=== PATIENT | female | born 1960 | race Caucasian/White ===

== ENCOUNTER → 2021-02-03 | Outpatient (CLI) | payer OTHER ==
--- NOTE | 2021-02-04 10:32 | RAD ---
EXAMINATION: CT LOWER RIGHT EXTREMITY WITHOUT CONTRAST, 02/03/2021 3:59 PM CLINICAL INDICATION: Evaluate tibia and tibial fracture. Posttraumatic arthritis. COMPARISON: Right ankle radiograph 01/29/2021 TECHNIQUE: Helical CT imaging performed of the right ankle without the use of intravenous contrast. S agittal and coronal reformats were obtained. One or more of the following individualized dose reduction techniques were utilized for this examinat ion: 1. Automated exposure control 2. Adjustment of the mA and/or kV according to patient size 3. Use of iterative reconstruction technique. FINDINGS: There is a lateral plate-screw fixation device traversing a likely healed distal fibular fr acture. There is some artifact mildly limiting evaluation of the bone. An interfragmentary screw jong erses a posterior malleolus fracture. The fracture appears healed with osseous bridging but there is a 5 x 5 x 3 mm (AP by transverse by CC) defect in the articular surface of the posterior medial tibia l plafond (image 35 series 8) the talar dome is intact. The tibiotalar joint space is maintained. The re are tiny subchondral cysts in the talar dome. Tiny anterior and posterior osteophytes. There is a 5 mm linear osseous fragment along the anterior dorsal aspect of the talar neck. Subtalar joints are maintained. No significant degenerative joint disease of the midfoot. Soft tissue is unremarkable. IMPRESSION: 1. Healed internally fixed distal fibular and posterior malleolar fractures. 2. 5 x 5 x 3 mm defect in the articular surface of the posterior medial tibial plafond related to the posterior malleolus fracture. 3. 5 mm linear osseous fragment at the anterior aspect of the talar neck. This is indeterminate. Pote ntially could be a small displaced osteochondral fragment, or could be an intra-articular body or old avulsion injury. MRI could be obtained if further evaluation is indicated. 4. There may be very mild tibiotalar degenerative joint disease. Electronically signed by: Faiza Valdes MD (02/04/2021 10:30 AM) [facility]
== END ==
LOC: CT 15:45
PROVIDERS: ATTEND Podiatrist
DX: M19.171 Post-traumatic osteoarthritis, right ankle and foot (principal); M25.70 Osteophyte, unspecified joint; Z18.89 Other specified retained foreign body fragments; Z98.890 Other specified postprocedural states
CPT/HCPCS: 73700

== ENCOUNTER → 2021-02-09 | Outpatient (CLI) | payer OTHER ==
[~2021-02-09] MED LIST: ACET500T68 PO; ASPI-630 PO; GABA-585 PO; IBUP-1007 PO; TRAM50TA PO
== END ==
LOC: LAB 13:32
PROVIDERS: ATTEND Podiatrist
DX: Z01.812 Encounter for preprocedural laboratory examination (principal); Z20.822 Contact with and (suspected) exposure to COVID-19
CPT/HCPCS: U0003; U0005

== ENCOUNTER 2021-02-11 06:12 | Day surgery (SDC) | payer OTHER ==
[~2021-02-11] VITALS: Ht 160 cm; Wt 86.2 kg
[~2021-02-11 06:12] MED LIST changes: -ACET500T68 PO; -ASPI-630 PO; -GABA-585 PO; +HYDROmorphone 2 MG/ML VIAL IVP PRN; -IBUP-1007 PO; +IV RINGERS,LACTATED 1000ML 1,000 ML IV SCH; +MORPHINE SULFATE 2 MG/ML INJ. IVP PRN; +PROCHLORPERAZINE 10 MG/2 ML VIAL. IVP PRN; -TRAM50TA PO; +fentaNYL PF VIAL 100 MCG/2 ML VIAL IVP PRN
[2021-02-11 06:42] VITALS: BP 133/66
[2021-02-11] MEDS ORDERED: BUPIVACAINE-EPI 0.25%-1:200000 MPF 30 ML VIAL. ONE (07:03)
[2021-02-11] MEDS ORDERED: BUPIVACAINE MPF 0.25% 30 ML VIAL. ONE (07:03)
[2021-02-11] MEDS ORDERED: EPINEPHrine VIAL 30 MG/30 ML VIAL ONE (07:03)
--- NOTE | 2021-02-11 07:06 | EKG ---
[facility] [address] [place] [address] Test Date: 2021-02-11 Test Time: 07:02:50 Pat Name: GUI FITHC Department: Room: Gender: F Wheel Cutter: DALIA : 1960 Requested By: WALESKA LINCOLN Order Number: [id number] Reading MD: Magdaleno Joyce Measurements Intervals [place] Rate: 87 P: -24 GA: 156 QRS: 24 QRSD: 70 T: 93 QT: 356 QTc: 429 Interpretive Statements SINUS RHYTHM T ABNORMALITY IN HIGH LATERAL LEADS ABNORMAL ECG RI6.02 No previous ECG available for comparison Electronically Signed On 02-11-2021 15:54:48 CDT by Magdaleno Joyce
[2021-02-11] MEDS ORDERED: LIDOCAINE 1%/EPI 1:100,000 20 ML VIAL. ONE ×2 (07:19)
[2021-02-11] MEDS ORDERED: ROPIVacaine 0.5% PF 20 ML VIAL. ONE (07:19)
[2021-02-11] MEDS ORDERED: KETAMINE HCL IN NACL, ISO-OSM 50 MG/5 ML SYRINGE ONE (07:20)
[2021-02-11] MEDS ORDERED: SUCCINYLCHOLINE 200 MG/10 ML VIAL. ONE (07:20)
[2021-02-11] MEDS ORDERED: fentaNYL PF VIAL 100 MCG/2 ML VIAL ONE (07:21)
[2021-02-11] MEDS ORDERED: GLYCOPYRROLATE 1 MG/5 ML VIAL. ONE (07:21)
[2021-02-11] MEDS ORDERED: PROPOFOL 10 MG/ML (20ML) VIAL. IV ONE (07:21)
[2021-02-11] MEDS ORDERED: LIDOCAINE 2% PF 5 ML VIAL. ONE (07:21)
[2021-02-11] MEDS ORDERED: PHENYLEPHRINE in 0.9% NACL PF 1 MG/10 ML SYRINGE. IV ONE (07:21)
[2021-02-11] MEDS ORDERED: MIDAZOLAM HCL/PF 2 MG/2 ML VIAL. ONE (07:21)
[2021-02-11] MEDS ORDERED: ONDANSETRON PF 4 MG/2 ML VIAL. ONE (07:22)
[2021-02-11] MEDS ORDERED: DEXAMETHASONE SOD PHOS 4 MG/ML VIAL ONE (07:22)
--- NOTE | 2021-02-11 07:29 | PDOC1 ---
History and Physical Date of Admission Date of Admission DATE: 02/11/21 TIME: 07:04 Identification/Chief Complaint Chief Complaint Right ankle pain Source Source: Patient History of Present Illness History of Present Illness Ms Tsai is a 60 yo F w/ PMHx adult ADHD, anxiety/depression, arthritis, HTN, smoker who comes to outpatient surgery for right ankle pain. Pre-op H&P for hardware removal and likely suturing right ankle. September 23, 2020 ORIF at [facility] for left ankle fracture increasing pain over the past 2 months swelling and delayed healing dorsal incision. With weightbearing and can be 8 out of 10 pain worsens. The day to the point swollen painful and red cannot descend stairs bear weight spite use of compression socks and ankle brace and orthopedic shoes she is not getting any relief. She is taking Celebrex 200 mg and this does not relieve her pain. She has gained 20 pounds during the initial recovery course and has not been able to lose the weight and has not been able to return to full duty at work. 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 Her goal is to be walking on her ankle for the busy holiday season. Due to persistent pain she asked her primary care physician Dr. Toni Christianson for a referral to Foot and ankle surgery. She underwent radiograph on 01/29 with lateral plate and screws and good position. CT ankle was performed on 02/03/2021 due to persistent pain. Tibia and fibula healling noted, however a 5 x 5 x 3 mm defect in the articular surface of the posterior medial tibial plafond related to the posterior malleolus fracture. In addition a 3.5 mm linear osseous fragment at the anterior aspect of the talar neck. Preop COVID-19 testing negative EKG appears normal sinus rhythm normal axis and intervals no ST segment abnormalities some anterolateral T wave flattening no inversions. This morning she is taking the Xanax for anxiety did not take her daily lisinopril or Celebrex. She has not smoked a cigarette this morning. She is trying to quit. No previous problems with anesthesia no history of blood clots no transfusion history. Past Medical History Cardiovascular: HTN Psych: Anxiety, Depression Past Surgical History Past Surgical History right rotator cuff repair 2015, Right ankle ORIF 09/23/2020 Past Surgical History: Family History Family History: Diabetes (Father), Hypertension (Mother) Family History: Parent (Mother at age 69, Father, 2 brothers, 4 sisters, 1 son, 3 daughters) Social History Smoke: 1 pack per day ALCOHOL: none Drugs: None Current Medications Current Medications Current Medications Fentanyl Citrate (Fentanyl 2ml Vial) 25 mcg PRN Q5MIN PRN IVP MILD PAIN 1-3; Start 02/11/21 at 06:00; Stop 02/12/21 at 05:59 Fentanyl Citrate (Fentanyl 2ml Vial) 50 mcg PRN Q5MIN PRN IVP MODERATE PAIN 4- 6; Start 02/11/21 at 06:00; Stop 02/12/21 at 05:59 Morphine Sulfate (Morphine Sulfate) 1 mg PRN Q10MIN PRN IVP SEVERE PAIN 7-10; Start 02/11/21 at 06:00; Stop 02/12/21 at 05:59 Ringer's Solution 1,000 ml @ 30 mls/hr Q24H IV ; Start 02/11/21 at 06:00; Stop 02/11/21 at 17:59 Hydromorphone HCl (Dilaudid) 0.5 mg PRN Q10MIN PRN IVP SEVERE PAIN 7-10, 2nd CHOICE; Start 02/11/21 at 06:00; Stop 02/12/21 at 05:59 Prochlorperazine Edisylate (Compazine) 5 mg PACU PRN PRN IVP NAUSEA, MRX1; Start 02/11/21 at 06:00; Stop 02/12/21 at 05:59 Cefazolin Sodium/ Dextrose 50 ml @ 100 mls/hr 1X PREOP PRN IV PRIOR TO PROCEDURE; Start 02/11/21 at 06:00; Stop 02/11/21 at 18:00 Active Scripts Active Reported No Known Medications Prior To Admisstion (Info) Each 1 Each Allergies Allergies: Coded Allergies: No Known Drug Allergies (Unverified , 05/09/15) ROS General: YES: Fatigue, Malaise; No: Chills, Night Sweats, Appetite, Other PSYCHOLOGICAL ROS: YES: Anxiety; No: Behavioral Disorder, Concentration difficultie, Decreased libido, Depression, Disorientation, Hallucinations, Hostility, Irritablity, Memory difficulties, Mood Swings, Obsessive thoughts, Physical abuse, Sexual abuse, Sleep disturbances, Suicidal ideation, Other Eyes: No Blurry vision, No Decreased vision, No Double vision, No Dry eyes, No Excessive tearing, No Eye Pain, No Itchy Eyes, No Loss of vision, No Photophobia, No Scotomata, No Uses contacts, No Uses glasses, No Other HEENT: No: Heacaches, Visual Changes, Hearing change, Nasal congestion, Nasal discharge, Oral lesions, Sinus pain, Sore Throat, Epistaxis, Sneezing, Snoring, Tinnitus, Vertigo, Vocal changes, Other ALLERGY AND IMMUNOLOGY: No: Hives, Insect Bite Sensitivity, Itchy/Watery Eyes, Nasal Congestion, Post Nasal Drip, Seasonal Allergies, Other Hematological and Lymphatic: No: Bleeding Problems, Blood Clots, Blood Transfusions, Brusing, Night Sweats, Pallor, Swollen Lymph Nodes, Other ENDOCRINE: No: Breast Changes, Galactorrhea, Hair Pattern Changes, Hot Flashes, Malaise/lethargy, Mood Swings, Palpitations, Polydipsia/polyuria, Skin Changes, Temperature Intolerance, Unexpected Weight Changes, Other Breast: No New/Changing Breast Lumps, No Nipple changes, No Nipple discharge, No Other Respiratory: No: Cough, Hemoptysis, Orthopnea, Pleuritic Pain, Shortness of breath, SOB with excertion, Sputum Changes, Stridor, Tachypnea, Wheezing, Other Cardiovascular: No Chest Pain, No Palpitations, No Orthopnea, No Paroxysmal Noc. Dyspnea, No Edema, No Lt Headedness, No Other Gastrointestinal: No Nausea, No Vomiting, No Abdominal Pain, No Diarrhea, No Constipation, No Melena, No Hematochezia, No Other Genitourinary: No Dysuria, No Frequency, No Incontinence, No Hematuria, No Retention, No Discharge, No Urgency, No Pain, No Flank Pain, No Other, No , No , No , No , No , No , No Musculoskeletal: Yes Gait Disturbance, Yes Joint Pain, Yes Joint Stiffness, Yes Joint Swelling, Yes Pain In: (Right ankle) Neurological: Yes Gait Disturbance; No Behavorial Changes, No Bowel/Bladder ControlChng, No Confusion, No Dizziness, No Headaches, No Impaired Coord/balance, No Memory Loss, No Numbness/Tingling, No Seizures, No Speech Problems, No Tremors, No Visual Changes, No Weakness, No Other Skin: Yes Skin Lesion Changes; No Dry Skin, No Eczema, No Hair Changes, No Lumps, No Mole Changes, No Mottling, No Nail Changes, No Pruritus, No Rash, No Other, No Acne Physical Exam General: Alert, Oriented X3, Cooperative, No acute distress HEENT: Atraumatic, PERRLA, EOMI, Mucous membr. moist/pink, Other (Glasses in place) Lungs: Clear to auscultation, Normal air movement Heart: S1S2, RRR, no thrills, no rubs, no gallops, no murmurs Abdomen: Normal bowel sounds, Soft, No tenderness, No hepatosplenomegaly, No masses Rectal Exam: not examined Extremities: No clubbing, No cyanosis, No edema, Normal pulses, Other (Right ankle tender, swollen, hyperesthetic, dorsal scar painful, swollen) Skin: No rashes Neuro: Normal gait, Normal speech, Strength at 5/5 X4 ext, Normal tone, Sensation intact, Cranial nerves 3-12 NL, Reflexes 2+ Psych/Mental Status: Mental status NL, Mood NL Images Images Right ankle radiograph: 01/29/2021 A lateral malleolar fracture is fixed by lateral plate and screws in expected alignment. Another interfragmentary screw fixes the distal tibia. No residual fracture defects are detectable. Mortise joint spaces and alignment are maintained. A small loose body is suspected within the anterior joint space. T here is a small plantar calcaneal spur. Soft tissue swelling persists. IMPRESSION: 1. Small loose body within the anterior ankle joint space. 2. Fracture fixation as above. CT right ankle 02/03/2021: FINDINGS: There is a lateral plate-screw fixation device traversing a likely healed distal fibular fracture. There is some artifact mildly limiting evaluation of the bone. An interfragmentary screw traverses a posterior malleolus fracture. The fracture appears healed with osseous bridging but there is a 5 x 5 x 3 mm (AP by transverse by CC) defect in the articular surface of the posterior medial tibial plafond (image 35 series 8) the talar dome is intact. The tibiotalar joint space is maintained. There are tiny subchondral cysts in the talar dome. Tiny anterior and posterior osteophytes. There is a 5 mm linear osseous fragment along the anterior dorsal aspect of the talar neck. Subtalar joints are maintained. No significant degenerative joint disease of the midfoot. Soft tissue is unremarkable. IMPRESSION: 1. Healed internally fixed distal fibular and posterior malleolar fractures. 2. 5 x 5 x 3 mm defect in the articular surface of the posterior medial tibial plafond related to the posterior malleolus fracture. 3. 5 mm linear osseous fragment at the anterior aspect of the talar neck. This is indeterminate. Potentially could be a small displaced osteochondral fragment, or could be an intra-articular body or old avulsion injury. MRI could be obtained if further evaluation is indicated. 4. There may be very mild tibiotalar degenerative joint disease. VTE Prophylaxis Ordered VTE Prophylaxis Devices: Yes VTE Pharmacological Prophylaxi: No Assessment/Plan Assessment/Plan A/P: Right ankle instability - with peroneal tendonitis, pain, edema, and post- traumatic arthritis. No further testing prior to planned hardware removal surgery HTN - on lisinopril Depression with anxiety - taking prn xanax and prn adderall Smoker - counseled 6 minutes on cessation, advised delayed wound healing is possible without cessation Post traumatic arthritis - taking celebrex FEN - NPO PPX - SCDs FULL CODE Dispo - no further testing prior to planned surgery Justifications for Admission Other Justification WALESKA LINCOLN MD Feb 11, 2021 07:29
[2021-02-11] MEDS ORDERED: HYDROmorphone 2 MG/ML VIAL ONE (10:49)
[2021-02-11] MEDS ORDERED: VANCOMYCIN 1 GM VIAL. ONE (12:08)
[2021-02-11] MEDS ORDERED: SEVOFLURANE > 120 MINUTES. IH ONE (12:45)
--- NOTE | 2021-02-11 13:06 | PDOC4 ---
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 There is a bassett ligament to the dorsal lateral aspect of the ankle gutter, OCD lesion to the anterior medial shoulder of the talus, Ferkle stage 3, measures approximately 1 x 1 cm. Prominent fibular hardware with overlying peroneal tendons at the proximal lateral margin. There is moderate scar tissue adhesion to the peroneal tendons along the distal lateral fibula. Complications: None Operative Note: Under mild sedation, patient was brought into the operating room and placed on operating table in a supine position. After general anesthesia and prophylactic IV antibiotics, a well-padded right thigh tourniquet was placed. A formal timeout was performed to confirm patient's identity, procedure and procedure site. Then the right lower extremity was scrubbed, prepped and draped using aseptic techniques. The left lower extremity was exsanguinated with elevation and tourniquet was inflated to 250 mmHg. Attention was directed to the anterior aspect of the right ankle. Provisional medial anterior portal was established just medial to the tibialis anterior tendon at the ankle level. Insufflation was achieved with 10 cc of normal saline using a spinal needle through the provisional anterior medial portal while the ankle joint was held at 90 degrees for cartilage protection. Afterwards, a small stab incision was created for the medial portal. This incision was bluntly dissected and dilated with a hemostat. Blunt obturator was slided through the cannula and introduced to the ankle joint. An obturator was withdrawn and the camera was inserted. Primary survey was performed. The camera was then utilized to localize the lateral incision. Again a stab incision was created over the lateral gutter. Blunt dissection was carried out down to the capsule which was penetrated. A cannula and blunt obturator were then introduced laterally into the joint. The obturator was removed and a 4.0mm shaver was inserted into the joint. At this time, we noted a moderate synovitis to the medial lateral gutters of the anterior ankle including a bassett ligament laterally. There was an area of fibrillation and soft cartilage at the anterior medial shoulder of the talus. A probe was used to investigate the OCD lesion and the cartilage Was easily delaminated. After shaver debridement to create vertical margins, the size of the lesion was measured approximately 1 x 1.5 cm. Microfractures were performed at 3 mm spaced spaced out from each other. Adequate droplet lobules were noted from the deep subchondral bone. Then the attention was directed to the anterior talar neck. There was no loose body or fragment as remarked on x-ray. Passive ankle range of motion was insignificant for osseous or cartilage impingement or soft tissue invagination into the ankle gutter. The anterior distal lip of the tibia was debrided with a 4.0 millimeter shaver to further open up the anterior ankle gutter. Then a final joint survey was performed and noted unremarkable for loose body, additional OCD lesion, soft tissue invagination or impingement. Then the surgical site was closed with simple interrupted 4-0 nylon. Then the attention was directed to the lateral aspect of the fibula where a linear incision was made over the prior cicatrix to access to the underlying hardware. The tissue plane was deepened with a combination of sharp and blunt dissection with care to protect and retract all the neurovascular bundles. After the elevation of the periosteum, the fibular plate with 5 inte-plate screws were visualized and removed in total without any complications. Two interfragmentary screws were removed anteriorly without any complications. At this time, the peroneal tendons were inspected and carefully released from the surrounding scar tissue with blunt dissection. The tendons were noted intact without any split tear or significant tenosynovitis. Then the site was irrigated with a copious saline solution. The wound bed was treated with 0.5 g of vancomycin powder. Then the incision was closed in layers with 3-0 Vicryl, 4 Monocryl 4-0 nylon. The attention was directed to the anterior distal ankle. Under the operative x- ray guidance, the independent fully threaded screw was identified. A small stab incision was made with a #15 blade and carried to deep with a combination of sharp and blunt dissection with care to protect and retract all the neurovascular bundles. The incision was carried deep to periosteum. The screw head was noted and the screw was removed in toto without any complication. The site was irrigated with copious saline solution. The site was then closed with 4-0 nylon. Intraoperative x-ray remarked removal of all the hardware without any insufficiency fractures distally at the fibula. Stress view was insignificant for syndesmotic joint instability. 15 cc of quarter percent Marcaine plain was infiltrated for postoperative anesthesia. The surgical sites were dressed with Betadine soaked Adaptic, 4 x 4 gauze, the right lower extremity was immobilized in a well-padded modified Campbell compression splint. Tourniquet was let down and adequate digital perfusion was noted. Patient was transferred to PACU with vital signs neurovascular status intact. Patient to return to my clinic in 2 weeks for skin check. In the meantime, she is to nonweightbearing to right lower extremity with toes above the nose elevation 45 minutes/h. TANNER ANDREW DPM Feb 11, 2021 13:06
[2021-02-11] MEDS ORDERED: ONDANSETRON PF 4 MG/2 ML VIAL. IVP PRN (13:15)
[2021-02-11] MEDS ORDERED: TRAM50TA PO (13:20)
[2021-02-11] MEDS ORDERED: GABA-585 PO (13:21)
[2021-02-11] MEDS ORDERED: ACET500T68 PO (13:21)
[2021-02-11] MEDS ORDERED: IBUP-1007 PO (13:22)
[2021-02-11] MEDS ORDERED: ASPI-630 PO (13:23)
[2021-02-11] MEDS ORDERED: oxyCODONE/APAP 5/325 1 TAB TABLET PO ONE (13:30)
[2021-02-11] MEDS ORDERED: ACETAMINOPHEN 325 MG TABLET. PO ONE (13:30)
[2021-02-11] MEDS ORDERED: GABAPENTIN 100 MG CAPSULE. PO ONE (13:30)
[2021-02-11 13:59] VITALS: BP 139/71
== END 2021-02-11 14:40 | disposition home or self-care (01) ==
LOC: SURG 06:12
PROVIDERS: ATTEND Podiatrist
DX: M25.371 Other instability, right ankle (principal); M76.71 Peroneal tendinitis, right leg; M65.871 Other synovitis and tenosynovitis, right ankle and foot; M93.271 Osteochondritis dissecans, right ankle and joints of right foot; M13.871 Other specified arthritis, right ankle and foot; I10 Essential (primary) hypertension; F41.9 Anxiety disorder, unspecified; F32.9 Major depressive disorder, single episode, unspecified; Z79.899 Other long term (current) drug therapy; Z98.890 Other specified postprocedural states; Z87.891 Personal history of nicotine dependence; Z82.49 Family history of ischemic heart disease and other diseases of the circulatory system; Z83.3 Family history of diabetes mellitus
CPT/HCPCS: 20680; 93005; A4930; A6223; A6253; A6402; A6449; A6450; J0171; J0330; J0690; J1100; J1170; J2250; J2405; J2704; J3010; J3370; J3490; 76000; A6455; J2370; J2795

== ENCOUNTER → 2021-06-09 | Outpatient (CLI) | payer OTHER ==
[~2021-06-09] MED LIST changes: +ACET500T68 PO; +ASPI-630 PO; +BUPIVACAINE MPF 0.5% 10 ML VIAL. IJ ONE; +BUPIVACAINE MPF 0.5% 10 ML VIAL. ONE; +CONTRAST GIVEN. MC PRN; +GABA-585 PO; -HYDROmorphone 2 MG/ML VIAL IVP PRN; +IBUP-1007 PO; +IOHEXOL 300 MG/ML 50 ML VIAL. INT ART ONE; -IV RINGERS,LACTATED 1000ML 1,000 ML IV SCH; +LIDOCAINE 1% Multi-Dose 20 ML VIAL. INJ ONE; -MORPHINE SULFATE 2 MG/ML INJ. IVP PRN; -PROCHLORPERAZINE 10 MG/2 ML VIAL. IVP PRN; +TRAM50TA PO; +TRIAMCINOLONE ACETONIDE 40 MG/ML VIAL. INT ART ONE; +TRIAMCINOLONE ACETONIDE 40 MG/ML VIAL. ONE; -fentaNYL PF VIAL 100 MCG/2 ML VIAL IVP PRN
--- NOTE | 2021-06-09 17:33 | RAD ---
EXAM: Fluoroscopically guided left hip joint injection of steroid and anesthetic. INDICATION: Left hip pain COMPARISON: Left hip radiograph 05/22/2021 TECHNIQUE/FINDINGS: The purpose of the procedure and risks including infection, bleeding, contrast reaction, and pain wer e discussed with the patient. Informed consent was obtained. A timeout was performed. After obtaining consent, the patient was placed supine on the fluoroscopy table with the left hip int ernally rotated. The skin overlying the left hip was marked, sterilized and draped. Superficial and deep soft tissues were anesthetized with 1% lidocaine. Utilizing fluoroscopic guidance, a 22-gauge 3.5" needle was advanced into the joint. Intraarticular position was confirmed with injection of a sm all amount of iodinated contrast. Subsequently, a solution containing the following items was instill ed into the joint: 1 mL: (40 mg/mL) 1 mL of 1% lidocaine, 5 mL bupivacaine. At the end of the procedu re, the needle was removed. The overlying skin was cleansed and covered with a bandaid. The patient tolerated the procedure well and was free of immediate complications. Total fluoroscopic time: 0.4 minutes. 2 images obtained. IMPRESSION: Technically successful left hip joint injection of steroid and anesthetic. Electronically signed by: Faiza Valdes MD (06/09/2021 5:30 PM) [id number]
== END | disposition home or self-care (01) ==
LOC: RAD 13:08
PROVIDERS: ATTEND Orthopaedic Surgery Sports Medicine
DX: M25.552 Pain in left hip (principal); I10 Essential (primary) hypertension; F41.9 Anxiety disorder, unspecified; F32.9 Major depressive disorder, single episode, unspecified; Z79.82 Long term (current) use of aspirin; Z79.899 Other long term (current) drug therapy; Z87.891 Personal history of nicotine dependence; Z98.890 Other specified postprocedural states
CPT/HCPCS: 20610; 77002; J3490; Q9967